=== PATIENT | male | born 1950 | race Caucasian/White ===

== ENCOUNTER 2024-09-08 18:20 | Inpatient (IN) | payer MEDICARE, SELFPAY ==
[2024-09-08 18:40] VITALS: BP 106/68; PULSE 80; RESP 18; TEMP 36.4; O2SAT 95; BMI 38.9
[2024-09-08 18:58] VITALS: BMI 37.3
--- NOTE | 2024-09-08 19:55 | HP.PCM_ITS ---
HPI - General General Date of Admission: 09/08/24 Date of Service: 09/11/24 Chief Complaint: Here for rehabilitation. HPI Narrative ALYX JENNINGS, is a 73 Male who presents with followin09/02/2024 Admit to [facility] with chest pain, shortness of breath. Influenza A. Fatigue, chest pain, shortness of breath, lightheadedness, fever 101.5. Recent left 2nd toe amputation for osteomyelitis. Cefepime IV, 1 liter IV fluid given. 09/02/2024 Tamiflu, IV fluids, cough suppressant for influenza A. Oral antibiotics for 3 weeks for left 2nd toe osteomyelitis. PT/OT/CM/SW. 09/05/2024 Podiatry consulted for left 2nd toe osteomyelitis status post amputation, suture removal later. 09/05/2024 Chest pain not cardiac related. 09/06/2024 Aortic stenosis severe. 09/07/2024 No acute events overnight, oxygen 2 liters to 3 liters. Troponin negative x 2, consider stress test if chest pain. Lasix 20mg IV x 1, Chest X-ray showed vascular congestion. Tamiflu for influenza A. PT/OT for SNF. D/C IV fluids, tolerating PO intake. 09/08/2024 Admit to TCU with debility, here for rehabilitation, strengthening, prior to discharge home with . [facility] Medical History Transient ischemic attack Obstructive sleep apnea Restless leg syndrome Hyperlipidemia Type 2 diabetes mellitus with hyperglycemia Anxiety Depression Low back pain Severe aortic stenosis Osteomyelitis of second toe of left foot Influenza A Acute respiratory failure with hypoxia Debility Home Medications ?Medication ?Instructions ?Recorded ?Last Taken ?Type acetaminophen 325 mg tablet 650 mg PO Q6H pain/fever 0 09/08/24 Unknown History aspirin 81 mg tablet,delayed 81 mg PO DAILY heart heal th 09/08/24 Unknown History release (Adult Low Dose Aspirin) cholecalciferol (vitamin D3) 125 125 mcg PO DAILY bone s 09/08/24 Unknown History mcg (5,000 unit) capsule clonazepam 1 mg tablet 1 mg PO QHS sleep 09/08/24 U nknown History empagliflozin 25 mg tablet 25 mg PO DAILY diabetes Unknown History (Jardiance) fenofibrate micronized 134 mg 134 mg PO DAILY choleste rol 09/08/24 Unknown History capsule finasteride 5 mg tablet 5 mg PO DAILY prostate 09/08 Unknown History glucose 4 gram chewable tablet 16 g PO DAILY PRN diabe mali mellitus 09/08/24 Unknown History (TRUEplus Glucose) hydrocodone-homatropine 5 mg-1.5 5 ml PO Q6H PRN cough 09/08/24 Unknown History mg/5 mL (5 mL) oral syrup (Hycodan) insulin glargine 100 unit/mL (3 49 unit subcut QPM christi betes 09/08/24 Unknown History mL) subcutaneous pen (Lantus Solostar U-100 Insulin) ipratropium 0.5 mg-albuterol 3 mg 3 ml inhalation Q8H PRN 09/08/24 Unknown History (2.5 mg base)/3 mL nebulization wheezing/sob soln isosorbide mononitrate 30 mg 30 mg PO DAILY Blood pres amaral 09/08/24 Unknown History tablet,extended release 24 hr oseltamivir 75 mg capsule 75 mg PO BID flu 09/08/24 Un known History polyethylene glycol 3350 17 17 g PO DAILY PRN constipa tion 09/08/24 Unknown History gram/dose oral powder (Miralax) pramipexole 1 mg tablet 1 mg PO BID parkinsons 09/08 Unknown History rosuvastatin 20 mg tablet 20 mg PO DAILY cholesterol 0 09/08/24 Unknown History semaglutide 3 mg tablet 3 mg PO DAILY wt loss Unknown History sertraline 100 mg tablet 150 mg PO DAILY mood 5 Unknown History Allergy/AdvReac Type Severity Reaction Status Date / Time PHAM Inhibitors AdvReac Severe Angioedema Verified 09/08/24 19:22 lisinopril AdvReac cough Verified 09/08/24 19:22 Family History Mother Diabetes Myocardial infarction Chronic mental illness Father CVA (cerebral vascular accident) Myocardial infarction Asthma Blindness Sister Breast cancer Brother Lung cancer Brother Diabetes Brother Thyroid disorder Surgical History History of tonsillectomy History of urologic surgery History of lithotripsy History of cataract surgery History of cardiac catheterization History of appendectomy History of amputation of left second toe Social History household members: spouse sexually active: Yes Smoking Status: Never smoker alcohol intake: never substance use type: does not use ROS Constitutional Constitutional: Reports weakness; Denies chills, fever(s) or weight gain ENT HEENT: Denies headache(s), nasal congestion or nasal discharge Cardiovascular Cardiovascular: Denies chest pain or palpitations Respiratory/Chest Respiratory/Chest: Denies cough, excessive phlegm production or shortness of breath with exertion Gastrointestinal Gastrointestinal: Denies abdominal pain, nausea or vomiting Genitourinary Genitourinary: Denies dysuria Musculoskeletal Musculoskeletal: Denies joint pain or joint swelling Integumentary Integumentary: Denies rash or wounds Neurologic Neurologic: Denies focal weakness, numbness or tingling Psychiatric Psychiatric: Denies anxiety, auditory hallucinations, depression, homicidal ideation or suicidal ideation Vital Signs Vital Signs Vital Signs: 09/08/24 18:40 09/08/24 18:40 Temperature 97.5 F L Temperature Source Temporal Pulse Rate 80 80 Pulse Rhythm Regular Pulse Strength Normal (2+) Respiratory Rate 18 18 Respiratory Effort Normal Respiratory Depth Normal Respiratory Pattern Normal Blood Pressure 106/68 Blood Pressure Mean 80 Blood Pressure Source Monitor Blood Pressure Position Semi-Fowlers Blood Pressure Location Left Arm Pulse Ox 95 95 Oxygen Delivery Method Room Air Room Air Weight Weight: 116.12 kg Body Mass Index (BMI) 38.9 Physical Exam Const alert General Appearance: cooperative HEENT normocephalic Eyes PERRL and EOMs intact bilaterally Neck supple, no JVD and no carotid bruits Resp normal respiratory effort, normal air movement and clear to auscultation bilaterally Cardio regular rate and regular rhythm GI normal to inspection, nondistended, normoactive bowel sounds, non-tender and non-distended Extremity normal capillary refill Extremity Narrative: Left foot dressed. General Extremity: Negative for edema Skin no rashes or lesions noted General Skin Exam: no breakdown Psych affect normal Appearance: appropriate Results Lab / Micro Data 09/09/24 04:00 09/09/24 04:00 Assessment & Plan Assessment/Plan (1) Debility: (2) Acute respiratory failure with hypoxia: (3) Influenza A: (4) History of amputation of left second toe: (5) Osteomyelitis of second toe of left foot: (6) Severe aortic stenosis: (7) Low back pain: (8) Depression: (9) Anxiety: (10) Type 2 diabetes mellitus with hyperglycemia: (11) Hyperlipidemia: (12) Restless leg syndrome: (13) Obstructive sleep apnea: (14) Transient ischemic attack: PLAN: Plan 73 year old male with below past medical history hospitalized for acute respiratory failure with hypoxia 2/2 influenza A, complicated by severe aortic stenosis, left 2nd toe amputation for osteomyelitis, admitted to TCU with debility, here for rehabilitation, strengthening, prior to discharge home with . * Debility - PT/OT. * Pain - Tylenol 650mg q6. * Bowel - senna/colace 1 tablet bid, Miralax 17gm daily prn. * Adult immunization - Administer pneumonia vaccine, covid vaccine, flu vaccine as appropriate. * DVT prophylaxis - Lovenox 40mg sc daily. * Influenza A - Tamiflu 75mg bid thru 09/11/2024. * Coronary artery disease - Isosorbide MN 30mg daily, Aspirin 81mg daily. * Hyperlipidemia - Atorvastatin 40mg daily. * Vitamin D deficiency - D3 125mcg daily. * Anxiety - Clonazepam 1mg qhs, stable chronic halfway use, GDR not recommended. * Diabetes Mellitus II - Jardiance 25mg daily, Glargine 49 units sc daily, Glucose oral gel 15gm q6 prn. * Hyperlipidemia - Fenofibrate 145mg daily. * BPH - Finasteride 5mg daily. * Cough - Robitussin DM 10mL q6 prn. * Restless leg syndrome - Mirapex 1mg bid. 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
[2024-09-08 21:22] LABS: Bedside Glucose 343 mg/dL (74-106)
[2024-09-08] MEDS: Oseltamivir Phosphate 75 MG Capsule PO (21:43)
[2024-09-08] MEDS: clonazePAM 1 MG Tablet PO (21:43)
[2024-09-08] MEDS: Insulin Glargine-YFGN 100 UNIT/ML Pen 49 UNIT SC (21:43)
[2024-09-08] MEDS: Pramipexole Di-HCl 1 MG Tablet PO (21:46)
[2024-09-08] MEDS: guaiFENesin Dm 10 ML UDC PO (21:53)
[2024-09-09 05:10] LABS: Absolute Lymphocyte Count 2.03 X10^3/uL (0.83-4.51); Absolute Neutrophil Count 6.4 X10^3/uL (2.0-7.7); Basophil# 0.07 X10^3/uL; Basophil% 0.7 % (0-1); Eosinophil# 0.04 X10^3/uL; Eosinophils% 0.4 % (0-5); Hematocrit 46.5 % (40-54); Hemoglobin 15.3 g/dL (13.0-16.5); Lymphocyte # 2.03 X10^3/ul (0.83-4.51); Lymphocyte % 21.3 % (19-41); Mean Corp Hgb Conc 32.9 g/dL (32-36); Mean Corpuscular Hgb 27.9 pg (27.0-32.0); Mean Corpuscular Volume 84.7 fL (80-94); Mean Platelet Vol. 9.8 fl (6.2-12.0); Monocyte# 0.73 X10^3/uL; Monocyte% 7.7 % (0-10); NRBC Flagged by Analyzer 0 % (0-5); Neutrophil # 6.41 X10^3/uL (2.7-7.7); Neutrophil % 67.5 % (47-70); Platelet Count 251 K/mm3 (150-450); RBC Distribution Width CV 13.5 % (11.6-14.6); RBC Distribution Width SD 42.4 fl (35.1-43.9); Red Blood Count 5.49 M/mm3 (4.6-6.2); White Blood Count 9.5 K/mm3 (4.4-11.0)
[2024-09-09 05:22] LABS: Anion Gap 8 (5-15); BUN 31 mg/dL (7-18); BUN/Creat Ratio 24.2 RATIO (10-20); Calcium,Total 9.8 mg/dL (8.5-10.1); Chloride 100 mmol/L (98-107); Creatinine, Serum 1.28 mg/dL (0.70-1.30); EST Glomerular Filtration Rate 58 mL/min (>60); Est Glom Filt Rate - Afr Amer 71 mL/min (>60); Estimated Creatinine Clearance 62.23 ml/min; Glucose 167 mg/dL (74-106); Potassium 3.5 mmol/L (3.5-5.1); Sodium Level 136 mmol/L (136-145)
[2024-09-09] MEDS: Acetaminophen 325 MG Tablet 650 MG PO ×3 (05:35→17:49)
[2024-09-09 06:21] LABS: Bedside Glucose 152 mg/dL (74-106)
[2024-09-09] MEDS: guaiFENesin Dm 10 ML UDC PO (07:00)
[2024-09-09] MEDS: Enoxaparin 40 MG/0.4 ML Syringe SC (07:07)
[2024-09-09] MEDS: Sertraline 100 MG Tablet 150 MG PO (08:31)
[2024-09-09] MEDS: Atorvastatin Calcium 40 MG Tablet PO (08:31)
[2024-09-09] MEDS: Finasteride 5 MG Tablet PO (08:31)
[2024-09-09] MEDS: Empagliflozin 25 MG Tablet PO (08:31)
[2024-09-09] MEDS: Cholecalciferol (Vit D3) 125 MCG CAPSULE (5,000 UNITS) PO (08:31)
[2024-09-09] MEDS: Aspirin E.C. 81 MG Tablet PO (08:31)
[2024-09-09] MEDS: Fenofibrate 145 MG Tablet PO (08:31)
[2024-09-09] MEDS: Isosorbide Mononitrate 30 MG Tablet PO (08:31)
[2024-09-09] MEDS: Pramipexole Di-HCl 1 MG Tablet PO ×2 (08:31→22:07)
[2024-09-09] MEDS: Oseltamivir Phosphate 75 MG Capsule PO ×2 (08:31→22:02)
[2024-09-09] MEDS: Senna/Docusate Sodium 1 Tablet PO ×2 (08:36→22:02)
[2024-09-09] MEDS: Tuberculin,Purif.prot.deriv. 50 TU/ML Vial 0.1 ML ID (10:02)
[2024-09-09 10:57] VITALS: BP 123/68; PULSE 68; RESP 18; TEMP 36.3; O2SAT 94
[2024-09-09 11:41] LABS: Bedside Glucose 159 mg/dL (74-106)
[2024-09-09 16:33] LABS: Bedside Glucose 242 mg/dL (74-106)
[2024-09-09 21:34] LABS: Bedside Glucose 343 mg/dL (74-106)
[2024-09-09 22:00] VITALS: PULSE 83; RESP 16; O2SAT 95
[2024-09-09] MEDS: clonazePAM 1 MG Tablet PO (22:01)
[2024-09-09] MEDS: Insulin Glargine-YFGN 100 UNIT/ML Pen 49 UNIT SC (22:06)
--- NOTE | 2024-09-09 22:34 | NURSING ---
Patient discovered self transferring to bathroom. Re-educated on use of call light for assistance. Will continue to monitor.
--- NOTE | 2024-09-10 02:41 | NURSING ---
Patient standing beside bed when this nurse entered room. Patient stated he had just used the urinal. His pajama bottoms were wet. They were removed and dry pajama bottoms put on. Has been refusing to put brief on. Continue to encourage patient to use call light for assistance. Will continue to monitor.
[2024-09-10] MEDS: Acetaminophen 325 MG Tablet 650 MG PO ×3 (05:44→17:38)
[2024-09-10] MEDS: Enoxaparin 40 MG/0.4 ML Syringe SC (05:44)
[2024-09-10 06:19] LABS: Bedside Glucose 147 mg/dL (74-106)
[2024-09-10] MEDS: Isosorbide Mononitrate 30 MG Tablet PO (08:32)
[2024-09-10] MEDS: Empagliflozin 25 MG Tablet PO (08:32)
[2024-09-10] MEDS: Pramipexole Di-HCl 1 MG Tablet PO ×2 (08:32→21:27)
[2024-09-10] MEDS: Atorvastatin Calcium 40 MG Tablet PO (08:32)
[2024-09-10] MEDS: Aspirin E.C. 81 MG Tablet PO (08:32)
[2024-09-10] MEDS: Cholecalciferol (Vit D3) 125 MCG CAPSULE (5,000 UNITS) PO (08:33)
[2024-09-10] MEDS: Oseltamivir Phosphate 75 MG Capsule PO ×2 (08:33→21:28)
[2024-09-10] MEDS: Finasteride 5 MG Tablet PO (08:33)
[2024-09-10] MEDS: Senna/Docusate Sodium 1 Tablet PO ×2 (08:33→21:28)
[2024-09-10] MEDS: Fenofibrate 145 MG Tablet PO (08:33)
[2024-09-10] MEDS: Sertraline 100 MG Tablet 150 MG PO (08:33)
[2024-09-10 10:58] VITALS: BP 128/80; PULSE 79; RESP 18; TEMP 36.4; O2SAT 98
[2024-09-10 11:57] LABS: Bedside Glucose 182 mg/dL (74-106)
[2024-09-10 16:29] LABS: Bedside Glucose 219 mg/dL (74-106)
[2024-09-10 21:25] VITALS: PULSE 84; RESP 16; O2SAT 93
[2024-09-10] MEDS: clonazePAM 1 MG Tablet PO (21:27)
[2024-09-10] MEDS: Insulin Glargine-YFGN 100 UNIT/ML Pen 49 UNIT SC (21:28)
[2024-09-10 22:18] LABS: Bedside Glucose 290 mg/dL (74-106)
--- NOTE | 2024-09-10 22:35 | NURSING ---
Asked patient about his follow up appt with DPM regarding left foot. He stated that it was made, but he did not remember time/date. He wasn't sure about keeping it if he was still here. I let him know that he could keep appt and that his could take him. He verbalized understanding. Will need to follow up with about appt.
[2024-09-11] MEDS: Acetaminophen 325 MG Tablet 650 MG PO ×3 (05:46→18:18)
[2024-09-11] MEDS: Enoxaparin 40 MG/0.4 ML Syringe SC (05:46)
[2024-09-11 06:32] LABS: Bedside Glucose 204 mg/dL (74-106)
[2024-09-11] MEDS: Fenofibrate 145 MG Tablet PO (08:16)
[2024-09-11] MEDS: Isosorbide Mononitrate 30 MG Tablet PO (08:16)
[2024-09-11] MEDS: Finasteride 5 MG Tablet PO (08:16)
[2024-09-11] MEDS: Sertraline 100 MG Tablet 150 MG PO (08:16)
[2024-09-11] MEDS: Empagliflozin 25 MG Tablet PO (08:16)
[2024-09-11] MEDS: Aspirin E.C. 81 MG Tablet PO (08:16)
[2024-09-11] MEDS: Cholecalciferol (Vit D3) 125 MCG CAPSULE (5,000 UNITS) PO (08:16)
[2024-09-11] MEDS: Oseltamivir Phosphate 75 MG Capsule PO ×2 (08:16→20:56)
[2024-09-11] MEDS: Senna/Docusate Sodium 1 Tablet PO ×2 (08:16→20:56)
[2024-09-11] MEDS: Pramipexole Di-HCl 1 MG Tablet PO ×2 (08:16→20:56)
[2024-09-11] MEDS: Atorvastatin Calcium 40 MG Tablet PO (08:17)
[2024-09-11 10:14] VITALS: BP 158/89; PULSE 81; RESP 18; TEMP 36.7; O2SAT 97
--- NOTE | 2024-09-11 10:22 | NURSING ---
Accountancy Professor Note; Activity Asset: Sara Stark is independent in his choice of daily activities. His will be her daily and will bring him items from home he may want. He will read the paper, watch tv, has his smartphone and word search puzzles. He welcomes visits from the payroll and benefits coordinator and therapy dog when available as well. Staff will remind him of weekly activities and respect his right to say no.
--- NOTE | 2024-09-11 11:20 | NURSING ---
Offered covid vaccine, VIS provided. Resident declines at a time.
[2024-09-11 11:48] LABS: Bedside Glucose 225 mg/dL (74-106)
--- NOTE | 2024-09-11 15:50 | CHAPLAIN ---
Type of Pastoral Visit _x__ Initial Visit ___ Follow-up Visit ___ On-call Visit ___ General Patient Visit ___ Spiritual Assessment ___ Family Conference ___ Bereavement ___ Rapid Response ___ Code Blue ___ Other (describe below) Pastoral Care Referral From _x__ Patient ___ Family ___ Nurse ___ Physician ___ Material Checker ___ Clarifier ___ Other (describe below) Sacrament/Intervention _x__ Active listening ___ Anointing ___ Mormon ___ Bereavement ___ Communion ___ Irene exploration ___ ___ Life review ___ Prayer ___ Reconciliation ___ Sacrament of Sick ___ Supportive presence ___ Wedding ___ Other (describe below) Pastoral Comments patient gives details on his injury, surgery, and then illness; pt reports feeling some better and begins to share more when the PT came for his session; visit ended with promise of picking it up later this week
[2024-09-11 16:55] LABS: Bedside Glucose 227 mg/dL (74-106)
[2024-09-11] MEDS: Insulin Glargine-YFGN 100 UNIT/ML Pen 49 UNIT SC (20:53)
[2024-09-11] MEDS: clonazePAM 1 MG Tablet PO (20:56)
[2024-09-11 21:31] LABS: Bedside Glucose 275 mg/dL (74-106)
[2024-09-12] MEDS: Enoxaparin 40 MG/0.4 ML Syringe SC (05:21)
[2024-09-12] MEDS: Acetaminophen 325 MG Tablet 650 MG PO ×3 (05:22→17:23)
[2024-09-12 05:49] VITALS: PULSE 80; O2SAT 95
[2024-09-12 06:44] LABS: Bedside Glucose 180 mg/dL (74-106)
[2024-09-12 07:51] VITALS: BP 121/78; PULSE 69; RESP 16; TEMP 36.4; O2SAT 96
[2024-09-12] MEDS: Isosorbide Mononitrate 30 MG Tablet PO (07:55)
[2024-09-12] MEDS: Aspirin E.C. 81 MG Tablet PO (07:55)
[2024-09-12] MEDS: Empagliflozin 25 MG Tablet PO (07:55)
[2024-09-12] MEDS: Pramipexole Di-HCl 1 MG Tablet PO ×2 (07:55→22:46)
[2024-09-12] MEDS: Atorvastatin Calcium 40 MG Tablet PO (07:55)
[2024-09-12] MEDS: Fenofibrate 145 MG Tablet PO (07:56)
[2024-09-12] MEDS: Cholecalciferol (Vit D3) 125 MCG CAPSULE (5,000 UNITS) PO (07:56)
[2024-09-12] MEDS: Finasteride 5 MG Tablet PO (07:56)
[2024-09-12] MEDS: Senna/Docusate Sodium 1 Tablet PO ×2 (07:56→22:46)
[2024-09-12] MEDS: Sertraline 100 MG Tablet 150 MG PO (07:56)
[2024-09-12 11:38] LABS: Bedside Glucose 178 mg/dL (74-106)
--- NOTE | 2024-09-12 15:42 | PCM.PN.DRR ---
Documented by User: Luz Davalos 09/12/24 16:02 TCU RX Drug Regimen Review Subjective/Objective Subjective/Objective Subjective: TCU Admission. 73 YOM presented to outside ER with chest pain and shortness of breath. Hospitalized for acute respiratory failure with hypoxia 2/2 influenza A, complicated by severe aortic stenosis, left 2nd toe amputation for osteomyelitis. Admitted to TCU with debility for strengthening and rehabilitation. Objective: Allergies PHAM Inhibitors Adverse Reaction (Severe, Verified 09/08/24 19:22) Angioedema spasmodic cough lisinopril Adverse Reaction (Verified 09/08/24 19:22) cough Current Medications Generic Name Dose Route Start Last Admin Trade Name Freq PRN Reason Stop Dose Admin Acetaminophen 650 mg 09/09/24 00:00 09/12/24 12:00 Acetaminophen 325 Mg Tablet PO 650 mg Q6 RYAN Administration Albuterol/Ipratropium 3 ml 09/08/24 18:54 Ipratropium/Albuterol Sulfate 3 Ml Ampul.Neb INHALATION Q8H PRN wheezing/sob Aspirin 81 mg 09/09/24 08:00 09/12/24 07:55 Aspirin E.C. 81 Mg Tablet PO 81 mg BREAKFAST RYAN Administration Atorvastatin Calcium 40 mg 09/09/24 10:00 09/12/24 07:55 Atorvastatin Calcium 40 Mg Tablet PO 40 mg DAILY RYAN Administration Cholecalciferol 125 mcg 09/09/24 10:00 09/12/24 07:56 Cholecalciferol (Vit D3) 125 Mcg Capsule (5,000 Units) PO 125 mcg DAILY RYAN Administration Clonazepam 1 mg 09/08/24 22:00 09/11/24 20:56 Clonazepam 1 Mg Tablet PO 1 mg QHS RYAN Administration Empagliflozin 25 mg 09/09/24 10:00 09/12/24 07:55 Empagliflozin 25 Mg Tablet PO 25 mg DAILY RYAN Administration Enoxaparin Sodium 40 mg 09/09/24 06:00 09/12/24 05:21 Enoxaparin 40 Mg/0.4 Ml Syringe SC 40 mg DAILY@0600 RYAN Administration Fenofibrate 145 mg 09/09/24 10:00 09/12/24 07:56 Fenofibrate 145 Mg Tablet PO 145 mg DAILY RYAN Administration Finasteride 5 mg 09/09/24 10:00 09/12/24 07:56 Finasteride 5 Mg Tablet PO 5 mg DAILY RYAN Administration Glucose 15 gm 09/08/24 19:34 Glucose Oral Gel 15 Gm Tube PO Q6H PRN HYPOGLYCEMIA Guaifenesin 10 ml 09/08/24 19:33 09/09/24 07:00 Guaifenesin Dm 10 Ml Udc PO 10 ml Q6H PRN Administration cough Insulin Glargine 49 unit 09/08/24 21:00 09/11/24 20:53 Insulin Glargine-Yfgn 100 Unit/Ml Pen SC 49 unit QPM RYAN Administration Isosorbide Mononitrate 30 mg 09/09/24 10:00 09/12/24 07:55 Isosorbide Mononitrate 30 Mg Tablet PO 30 mg DAILY RYAN Administration Protocol Polyethylene Glycol 17 gm 09/08/24 19:29 Polyethylene Glycol 3350 17 Gm Packet PO DAILY PRN constipation Pramipexole Dihydrochloride 1 mg 09/08/24 22:00 09/12/24 07:55 Pramipexole Di-Hcl 1 Mg Tablet PO 1 mg BID RYAN Administration Senna/Docusate Sodium 1 tablet 09/08/24 22:00 09/12/24 07:56 Senna/Docusate Sodium 1 Tablet PO 1 tablet BID RYAN Administration Sertraline HCl 150 mg 09/09/24 10:00 09/12/24 07:56 Sertraline 100 Mg Tablet PO 150 mg DAILY RYAN Administration Tuberculin PPD 0.1 ml 09/16/24 10:00 Tuberculin,Purif.Prot.Deriv. 50 Tu/Ml Vial ID 09/16/24 10:01 X1 ONE Problem List Transient ischemic attack (Acute) Obstructive sleep apnea (Acute) Restless leg syndrome (Acute) Hyperlipidemia (Acute) Type 2 diabetes mellitus with hyperglycemia (Acute) Anxiety (Acute) Depression (Acute) Low back pain (Acute) Severe aortic stenosis (Acute) Osteomyelitis of second toe of left foot (Acute) History of amputation of left second toe (Acute) Influenza A (Acute) Acute respiratory failure with hypoxia (Acute) Debility (Acute) Vital Signs Temp Pulse Resp BP Pulse Ox O2 Del Method 97.6 F L 69 16 121/78 H 96 Room Air 09/12/24 07:51 09/12/24 07:51 09/12/24 07:51 09/12/24 07:51 09/12/24 07:51 09/12/24 07:51 Oxygen Delivery Method Room Air Weight: 111.4 kg Body Mass Index (BMI) 37.3 Sodium 136 mmol/L (136-145) 09/09/24 04:00 Potassium 3.5 mmol/L (3.5-5.1) 09/09/24 04:00 Chloride 100 mmol/L (98-107) 09/09/24 04:00 Carbon Dioxide 28.0 mmol/L (21.0-32.0) 09/09/24 04:00 Anion Gap 8 (5-15) 09/09/24 04:00 BUN 31 mg/dL (7-18) H 09/09/24 04:00 Creatinine 1.28 mg/dL (0.70-1.30) 09/09/24 04:00 Est GFR (MDRD) Af Amer 71 mL/min (>60) 09/09/24 04:00 Est GFR (MDRD) Non-Af 58 mL/min (>60) L 09/09/24 04:00 BUN/Creatinine Ratio 24.2 RATIO (10-20) H 09/09/24 04:00 Glucose 167 mg/dL (74-106) H 09/09/24 04:00 Assessment/Plan: 1. Pain: acetaminophen 650mg PO Q6. Please continue to monitor for increased pain. 2. Bowel: senna/docusate 1T PO BID and Miralax 17gm PO daily PRN constipation. Resident has not had any PRN doses. Please continue to monitor for constipation and PRN usage. 3. DVT prophylaxis: enoxaparin 40mg SC daily. Please continue to monitor for S/S of DVT/bleeding, hemoglobin (last 15.3g/dL), platelets (last 251,000) and renal function. 4. CAD: isosorbide mononitrate 30mg PO daily and aspirin 81mg PO daily. Please continue to monitor BP (last 121/78), chest pain, facial flushing, S/S of bleeding and hemoglobin. 5. Hyperlipidemia: atorvastatin 40mg PO daily and fenofibrate 145mg PO daily. Please consider ordering a lipid panel as there is no panel in the chart. Thanks. Please continue to monitor for muscle pain. 6. Diabetes Mellitus II: empagliflozin 25mg PO daily, insulin glargine 49units SC QPM and glucose oral gel 15gm PO Q6H PRN hypoglycemia. No PRN usage. Please consider ordering a hemoglobin A1c as there is no level in the chart. Thanks. Please continue to monitor glucose (last 178mg/dL), renal function and S/S of hypoglycemia. 7. BPH: finasteride 5mg PO daily. Please continue to monitor BP and S/S of BPH. 8. Restless leg syndrome: pramipexole 1mg PO BID. Please continue to monitor for S/S of restless legs and drowsiness. 9. Cough: guaifenesin/DM 10mL PO Q6H PRN cough. Resident has received 2 doses. Please continue to monitor for cough and PRN usage. 10. Vitamin D deficiency: cholecalciferol 125mcg PO daily. Please consider ordering a vitamin D level as there is no level in the chart. Thanks. 11. SOB/wheezing: Duoneb 3mL inhalation Q8H PRN SOB/wheezing. No PRN doses given. Please continue to monitor for PRN usage and SOB. Assessment/Plan for indications treated with psychotropic medications: 1. Depression: sertraline 150mg PO daily. Please see physician note regarding GDR. Please continue to monitor for S/S of suicidal ideation (black box warning), sodium (last 136mmol/L) and falls/fractures (BEERs). 2. Anxiety: clonazepam 1mg PO QHS. Please see physician note regarding GDR. Please continue to monitor for falls/fractures (BEERs), dementia/delirium (BEERs) and confusion. Medical chart and medication regimen reviewed. The following medication irregularities or issues were identified: 1. Atorvastatin 40mg PO daily and fenofibrate 145mg PO daily. Please consider ordering a lipid panel as there is no panel in the chart. Thanks. 2. Empagliflozin 25mg PO daily, insulin glargine 49units SC QPM. No PRN usage. Please consider ordering a hemoglobin A1c as there is no level in the chart. Thanks. 3. Cholecalciferol 125mcg PO daily. Please consider ordering a vitamin D level as there is no level in the chart. Thanks. Date Date of Note: 09/12/24 Documented by User: Dr. Huang Owen MD 09/12/24 17:12 TCU RX Drug Regimen Review Provider Comments Provider responsibility Provider Comments to Recommendations by Pharmacy Agree
[2024-09-12 16:25] LABS: Bedside Glucose 220 mg/dL (74-106)
[2024-09-12 16:49] VITALS: BMI 37.3
[2024-09-12 22:05] LABS: Bedside Glucose 190 mg/dL (74-106)
[2024-09-12] MEDS: clonazePAM 1 MG Tablet PO (22:45)
[2024-09-12] MEDS: Insulin Glargine-YFGN 100 UNIT/ML Pen 49 UNIT SC (22:45)
[2024-09-13] MEDS: Acetaminophen 325 MG Tablet 650 MG PO ×3 (06:09→17:24)
[2024-09-13] MEDS: Enoxaparin 40 MG/0.4 ML Syringe SC (06:09)
[2024-09-13 06:10] LABS: Bedside Glucose 180 mg/dL (74-106)
[2024-09-13 06:37] LABS: Cholesterol 103 mg/dL (200); High Density Lipoprotein 35 mg/dL; Triglycerides 248 mg/dL; Very Low Density Lipoprotein 50 mg/dL (5-40)
[2024-09-13 08:12] VITALS: BP 146/85; PULSE 83; RESP 16; TEMP 36.2; O2SAT 93
[2024-09-13] MEDS: Aspirin E.C. 81 MG Tablet PO (08:14)
[2024-09-13] MEDS: Finasteride 5 MG Tablet PO (08:15)
[2024-09-13] MEDS: Senna/Docusate Sodium 1 Tablet PO ×2 (08:15→21:33)
[2024-09-13] MEDS: Fenofibrate 145 MG Tablet PO (08:15)
[2024-09-13] MEDS: Isosorbide Mononitrate 30 MG Tablet PO (08:15)
[2024-09-13] MEDS: Empagliflozin 25 MG Tablet PO (08:15)
[2024-09-13] MEDS: Cholecalciferol (Vit D3) 125 MCG CAPSULE (5,000 UNITS) PO (08:15)
[2024-09-13] MEDS: Atorvastatin Calcium 40 MG Tablet PO (08:15)
[2024-09-13] MEDS: Sertraline 100 MG Tablet 150 MG PO (08:15)
[2024-09-13] MEDS: Pramipexole Di-HCl 1 MG Tablet PO ×2 (08:15→21:34)
[2024-09-13 08:38] LABS: Hemoglobin A1c 8.3 % (3.8-5.6)
--- NOTE | 2024-09-13 09:32 | NURSING ---
Discussed follow-up appts for podiatry and cardiology with resident and . They will re-schedule for after resident DC's from TCU.
--- NOTE | 2024-09-13 09:50 | CASEMGMT ---
Social Work IDT met with patient, and dtr for care plan meeting. Discussed patient's progress in PT/OT/SN. Educated to [facility] insurance with NRD 09/23 and continued stay is not guaranteed with each review. Provided family with written communication on insurance process and copay coverage during stay. SW requested family provide pt's advance directives to place on chart. and dtr both work full-time but report to rotating schedules so someone is always home with pt. The plan is for pt to consistently using walker. No other concerns noted. SW will continue to follow for DC planning. Francine Malik FIELD ENGINEER NURSERY HELPER
[2024-09-13 12:07] LABS: Bedside Glucose 245 mg/dL (74-106)
--- NOTE | 2024-09-13 15:57 | CASEMGMT ---
Social Work SW returned after POC meeting to complete initial assessment. Verified contacts. Confirmed pt's code status as DNR-CCA, no intubation. SW notified nursing to have purple bracelet placed. Pt's goal is to return home at [facility] with and dtr. See SW assessment for details. SW will continue to follow for DC planning, Francine Malik DEMOGRAPHER BUSHEL WORKER
[2024-09-13 16:35] LABS: Bedside Glucose 292 mg/dL (74-106)
[2024-09-13 20:00] VITALS: PULSE 77; O2SAT 95
[2024-09-13] MEDS: clonazePAM 1 MG Tablet PO (21:33)
[2024-09-13] MEDS: Insulin Glargine-YFGN 100 UNIT/ML Pen 49 UNIT SC (21:34)
[2024-09-13 21:44] LABS: Bedside Glucose 309 mg/dL (74-106)
[2024-09-14] MEDS: Enoxaparin 40 MG/0.4 ML Syringe SC (06:02)
[2024-09-14 06:15] LABS: Bedside Glucose 197 mg/dL (74-106)
[2024-09-14] MEDS: Empagliflozin 25 MG Tablet PO (08:13)
[2024-09-14] MEDS: Sertraline 100 MG Tablet 150 MG PO (08:13)
[2024-09-14] MEDS: Pramipexole Di-HCl 1 MG Tablet PO ×2 (08:13→20:49)
[2024-09-14] MEDS: Finasteride 5 MG Tablet PO (08:13)
[2024-09-14] MEDS: Fenofibrate 145 MG Tablet PO (08:13)
[2024-09-14] MEDS: Cholecalciferol (Vit D3) 125 MCG CAPSULE (5,000 UNITS) PO (08:13)
[2024-09-14] MEDS: Aspirin E.C. 81 MG Tablet PO (08:14)
[2024-09-14] MEDS: Isosorbide Mononitrate 30 MG Tablet PO (08:14)
[2024-09-14] MEDS: Atorvastatin Calcium 40 MG Tablet PO (08:14)
[2024-09-14] MEDS: Senna/Docusate Sodium 1 Tablet PO (08:14)
[2024-09-14 08:17] VITALS: BP 147/75; PULSE 84
--- NOTE | 2024-09-14 11:51 | MDS.RN ---
Pain assessment for MDS complete.
[2024-09-14 12:14] LABS: Bedside Glucose 247 mg/dL (74-106)
[2024-09-14 14:23] LABS: Vitamin D,25 Hydroxy 49.4 ng/mL
--- NOTE | 2024-09-14 14:58 | CHAPLAIN ---
Type of Pastoral Visit ___ Initial Visit _x__ Follow-up Visit ___ On-call Visit ___ General Patient Visit ___ Spiritual Assessment ___ Family Conference ___ Bereavement ___ Rapid Response ___ Code Blue ___ Other (describe below) Pastoral Care Referral From _x__ Patient ___ Family ___ Nurse ___ Physician ___ Batterboard Setter ___ Dice Maker ___ Other (describe below) Sacrament/Intervention _x__ Active listening ___ Anointing ___ Mormonism ___ Bereavement ___ Communion _x__ Irene exploration ___ _x__ Life review _x__ Prayer ___ Reconciliation ___ Sacrament of Sick _x__ Supportive presence ___ Wedding ___ Other (describe below) Pastoral Comments patient was visited briefly a few days ago but the visit was short due to therapy session; sat with patient today and he was very welcoming and talkative; pt has great connections with friends for spiritual support and has a deep irene in God; pt is expressive of his irene and life experiences; pt acknowledges that he has diagnosis of dementia - lewy body; inquired as to how the patient is handling this situation and how he is facing the future; pt is open to discuss and believes that his irene will guide him and that his realistic approach to living will be a benefit; pt welcomes presence and prayer; pt hopes to go home by next Wednesday to celebrate his birthday
[2024-09-14 15:24] VITALS: BP 118/70; PULSE 76; RESP 16; TEMP 36; O2SAT 92
--- NOTE | 2024-09-14 15:52 | CASEMGMT ---
Social Work SW completed BIMS () and PHQ-2 () for MDS assessment. Pt is requesting to DC home, specifically by [birth year]. SW to review with IDT and and follow up with pt. Pt appreciative. Francine Malik LIBRARY ASSOCIATE PSYCHIATRIC CNS
[2024-09-14 17:00] LABS: Bedside Glucose 269 mg/dL (74-106)
[2024-09-14] MEDS: clonazePAM 1 MG Tablet PO (20:49)
[2024-09-14] MEDS: Insulin Glargine-YFGN 100 UNIT/ML Pen 49 UNIT SC (20:55)
[2024-09-14 21:15] LABS: Bedside Glucose 302 mg/dL (74-106)
[2024-09-15 05:54] LABS: Absolute Lymphocyte Count 2.54 X10^3/uL (0.83-4.51); Absolute Neutrophil Count 4.7 X10^3/uL (2.0-7.7); Basophil# 0.12 X10^3/uL; Basophil% 1.4 % (0-1); Eosinophil# 0.32 X10^3/uL; Eosinophils% 3.7 % (0-5); Hematocrit 49.1 % (40-54); Hemoglobin 15.9 g/dL (13.0-16.5); Lymphocyte # 2.54 X10^3/ul (0.83-4.51); Lymphocyte % 29.2 % (19-41); Mean Corp Hgb Conc 32.4 g/dL (32-36); Mean Corpuscular Hgb 28.2 pg (27.0-32.0); Mean Corpuscular Volume 87.2 fL (80-94); Mean Platelet Vol. 9.1 fl (6.2-12.0); Monocyte# 0.85 X10^3/uL; Monocyte% 9.8 % (0-10); NRBC Flagged by Analyzer 0 % (0-5); Neutrophil # 4.74 X10^3/uL (2.7-7.7); Neutrophil % 54.3 % (47-70); Platelet Count 267 K/mm3 (150-450); RBC Distribution Width CV 14.1 % (11.6-14.6); RBC Distribution Width SD 45.1 fl (35.1-43.9); Red Blood Count 5.63 M/mm3 (4.6-6.2); White Blood Count 8.7 K/mm3 (4.4-11.0)
[2024-09-15] MEDS: Enoxaparin 40 MG/0.4 ML Syringe SC (06:03)
[2024-09-15 06:57] LABS: Bedside Glucose 210 mg/dL (74-106)
[2024-09-15 07:51] VITALS: BP 130/82; PULSE 81; RESP 16; TEMP 36.5; O2SAT 94
[2024-09-15 08:06] LABS: Anion Gap 9 (5-15); BUN 17 mg/dL (7-18); Calcium,Total 9.3 mg/dL (8.5-10.1); Chloride 106 mmol/L (98-107); Creatinine, Serum 1.54 mg/dL (0.70-1.30); EST Glomerular Filtration Rate 47 mL/min (>60); Est Glom Filt Rate - Afr Amer 57 mL/min (>60); Estimated Creatinine Clearance 51.68 ml/min; Glucose 192 mg/dL (74-106); Potassium 3.9 mmol/L (3.5-5.1); Sodium Level 142 mmol/L (136-145)
[2024-09-15] MEDS: Aspirin E.C. 81 MG Tablet PO (08:09)
[2024-09-15] MEDS: Isosorbide Mononitrate 30 MG Tablet PO (08:10)
[2024-09-15] MEDS: Empagliflozin 25 MG Tablet PO (08:10)
[2024-09-15] MEDS: Atorvastatin Calcium 40 MG Tablet PO (08:11)
[2024-09-15] MEDS: Pramipexole Di-HCl 1 MG Tablet PO ×2 (08:12→21:52)
[2024-09-15] MEDS: Finasteride 5 MG Tablet PO (08:12)
[2024-09-15] MEDS: Senna/Docusate Sodium 1 Tablet PO (08:13)
[2024-09-15] MEDS: Fenofibrate 145 MG Tablet PO (08:14)
[2024-09-15] MEDS: Cholecalciferol (Vit D3) 125 MCG CAPSULE (5,000 UNITS) PO (08:14)
[2024-09-15] MEDS: Sertraline 100 MG Tablet 150 MG PO (08:15)
[2024-09-15] MEDS: Insulin Lispro 100 UNIT/ML INSULN.PEN SC ×3 (08:25→17:53)
--- NOTE | 2024-09-15 08:30 | NURSING ---
Multicut Line Operator Note; MDS for 09/15/2024 Complete
[2024-09-15 10:00] VITALS: BP 132/82; PULSE 92; RESP 18; TEMP 36.7; O2SAT 95
--- NOTE | 2024-09-15 10:01 | CASEMGMT ---
Addendum entered by Francine Malik 09/18/24 11:13: selected HHC preferences via [employer] Link. SW referred to [facility], Counts include 234 beds at the [facility], [facility], [facility]. Counts include 234 beds at the [facility] is the only accepting agency. SW secured. SW updated pt and they will contact pt for SOC. DC paperwork sent. Original Note: Social Work SW phoned to discuss DC date. OPERATING ROOM SURGICAL TECHNOLOGIST/NATE voice no concerns with DC, recommending pt using a walker and supervision for tasks. expressed understanding, has no concerns and agreeable to DC. SW offered to set DC. prefers 09/20. SW offered HHC vs OP. prefers HHC. SW offered to provide list of agencies including quality and resource data via [employer]. accepts and prefers text link. SW sent via [employer] link. to review and notify this worker of preferences for PT/OT. No DME needs. to transport home. Plan: DC home with and dtr 09/20, HHC PT/OT Francine Malik FUEL MANAGEMENT HANDLER PRICING/SIGNAGE TEAM MEMBER
[2024-09-15 11:46] LABS: Bedside Glucose 215 mg/dL (74-106)
--- NOTE | 2024-09-15 14:01 | DS.PCM_ITS ---
Providers Date of Admission: 09/08/24 Reason For Visit: INFLUENZA A, RECENT LEFT FOOT SURGERY Diagnosis Discharge Diagnosis (1) Debility: Status: Acute Code(s): R53.81 - Other malaise (2) Acute respiratory failure with hypoxia: Status: Acute Code(s): J96.01 - Acute respiratory failure with hypoxia (3) Influenza A: Status: Acute Code(s): J10.1 - Influenza due to other identified influenza virus with other respiratory manifestations (4) History of amputation of left second toe: Status: Acute Code(s): Z89.422 - Acquired absence of other left toe(s) (5) Osteomyelitis of second toe of left foot: Status: Acute Code(s): M86.9 - Osteomyelitis, unspecified (6) Severe aortic stenosis: Status: Acute Code(s): I35.0 - Nonrheumatic aortic (valve) stenosis (7) Low back pain: Status: Acute Code(s): M54.50 - Low back pain, unspecified (8) Depression: Status: Acute Code(s): F32.A - Depression, unspecified (9) Anxiety: Status: Acute Code(s): F41.9 - Anxiety disorder, unspecified (10) Type 2 diabetes mellitus with hyperglycemia: Status: Acute Code(s): E11.65 - Type 2 diabetes mellitus with hyperglycemia (11) Hyperlipidemia: Status: Acute Code(s): E78.5 - Hyperlipidemia, unspecified (12) Restless leg syndrome: Status: Acute Code(s): G25.81 - Restless legs syndrome (13) Obstructive sleep apnea: Status: Acute Code(s): G47.33 - Obstructive sleep apnea (adult) (pediatric) (14) Transient ischemic attack: Status: Acute Code(s): G45.9 - Transient cerebral ischemic attack, unspecified Plan 73 year old male with below past medical history hospitalized for acute respiratory failure with hypoxia 2/2 influenza A, complicated by severe aortic stenosis, left 2nd toe amputation for osteomyelitis, admitted to TCU with debility, here for rehabilitation, strengthening, prior to discharge home with . * Debility - PT/OT. * Pain - Tylenol 650mg q6. * Bowel - senna/colace 1 tablet bid, Miralax 17gm daily prn. * Adult immunization - Administer pneumonia vaccine, covid vaccine, flu vaccine as appropriate. * DVT prophylaxis - Lovenox 40mg sc daily. * Influenza A - Tamiflu 75mg bid thru 09/11/2024. * Coronary artery disease - Isosorbide MN 30mg daily, Aspirin 81mg daily. * Hyperlipidemia - Atorvastatin 40mg daily. * Vitamin D deficiency - D3 125mcg daily. * Anxiety - Clonazepam 1mg qhs, stable chronic residential use, GDR not recommended. * Diabetes Mellitus II - Jardiance 25mg daily, Glargine 49 units sc daily, Glucose oral gel 15gm q6 prn. * Hyperlipidemia - Fenofibrate 145mg daily. * BPH - Finasteride 5mg daily. * Cough - Robitussin DM 10mL q6 prn. * Restless leg syndrome - Mirapex 1mg bid. 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 Medications at Discharge Home Medications aspirin 81 mg tablet,delayed release (Adult Low Dose Aspirin) 81 mg PO DAILY heart health 09/08/24 cholecalciferol (vitamin D3) 125 mcg (5,000 unit) capsule 125 mcg PO DAILY bones 09/08/24 clonazepam 1 mg tablet 1 mg PO QHS sleep 09/08/24 empagliflozin 25 mg tablet (Jardiance) 25 mg PO DAILY diabetes 09/08/24 fenofibrate micronized 134 mg capsule 134 mg PO DAILY cholesterol 09/08/24 finasteride 5 mg tablet 5 mg PO DAILY prostate 09/08/24 insulin glargine 100 unit/mL (3 mL) subcutaneous pen (Lantus Solostar U-100 Insulin) 49 unit subcut QPM diabetes 09/08/24 isosorbide mononitrate 30 mg tablet,extended release 24 hr 30 mg PO DAILY Blood pressu 09/08/24 pramipexole 1 mg tablet 1 mg PO BID parkinsons 09/08/24 rosuvastatin 20 mg tablet 20 mg PO DAILY cholesterol 09/08/24 semaglutide 3 mg tablet 3 mg PO DAILY wt loss 09/08/24 sertraline 100 mg tablet 150 mg PO DAILY mood 09/08/24 Hospital Course Operations None Procedures None Summary of Care Provided Minutes Spent on Discharge: 35 Hospital Course: 73 year old male with below past medical history hospitalized for acute respiratory failure with hypoxia 2/2 influenza A, complicated by severe aortic stenosis, left 2nd toe amputation for osteomyelitis, admitted to TCU with debility, here for rehabilitation, strengthening, prior to discharge home with . Discharge home with and daughter 09/20/2024, [facility] PT/OT. Physical Exam Const alert General Appearance: cooperative HEENT normocephalic Eyes PERRL and EOMs intact bilaterally Neck supple, no JVD and no carotid bruits Resp normal respiratory effort, normal air movement and clear to auscultation bilaterally Cardio regular rate and regular rhythm GI normal to inspection, nondistended, normoactive bowel sounds, non-tender and non-distended Extremity normal capillary refill General Extremity: Negative for edema Skin no rashes or lesions noted General Skin Exam: no breakdown Psych affect normal Appearance: appropriate Weight / BMI Weight Weight: 111.221 kg Body Mass Index (BMI) 37.3 ABG / Lab / Microbiology Data 09/15/24 05:22 09/15/24 05:22 Laboratory: Laboratory Results - last 24 hr 09/13/24 05:16: Vitamin D 25-Hydroxy 49.4 09/14/24 16:39: POC Glucose 269 H 09/14/24 20:54: POC Glucose 302 H 09/15/24 05:22: WBC 8.7, RBC 5.63, Hgb 15.9, Hct 49.1, MCV 87.2, MCH 28.2, MCHC 32.4, RDW Std Deviation 45.1 H, RDW Coeff of Jessica 14.1, Plt Count 267, MPV 9.1, I mmature Gran % (Auto) 1.600 H, Neut % (Auto) 54.3, Lymph % (Auto) 29.2, Bradford % (Auto) 9.8, Eos % (Auto) 3.7, Baso % (Auto) 1.4 H, Absolute Neuts (auto) 4.7, Absolute Lymphs (auto) 2.54, Nucleated RBC % 0, Sodium 142, Potassium 3.9, Chloride 106, Carbon Dioxide 27.0, Anion Gap 9, BUN 17, Creatinine 1.54 H, Estim Creat Clear Calc 51.68, Est GFR (MDRD) Af Amer 57 L, Est GFR (MDRD) Non-Af 47 L, BUN/Creatinine Ratio 11.0, Glucose 192 H, Calcium 9.3 09/15/24 06:07: POC Glucose 210 H 09/15/24 11:25: POC Glucose 215 H Microbiology: Microbiology 09/13/24 Unknown Nasal Secretion SARS-CoV-2 Antigen (Rapid) - Final D/C Instructions Discharge Diet: No restrictions Discharge Activity: Return to Normal Activity, May Shower and Use Walker Weight Bearing Status: Weight bearing as tolerated Call your doctor if you observe: Fever of 101 or Higher, Inability to urinate, Inability to have a bowel movement, Shortness of breath, Dizziness, Fainting spells, Swelling in the ankles, Chest pain and Uncontrolled pain DC O2, CPAP, BIPAP Needs Home O2 Discharge instructions: No Additional Instructions: Discharge home with and daughter 09/20/2024, [facility] PT/OT. Please Follow Up With: KELVIN Fairchild When: As scheduled. Meaningful Use Info Meaningful Use Meaningful Use Diagnoses (Choose all that apply): None applicable Ischemic Stroke Statin Dosing Therapy Reference: STATIN DOSE THERAPY REFERENCE: * Patients > 75 years receive moderate or high dose statin therapy. * Patients 75 years or YOUNGER should receive HIGH intensity statin dose unless contraindicated. You will be required to document reason for non-treatment if statin daily dose does not meet guidelines. HIGH DOSE STATIN THERAPY DAILY Atorvastatin > than or = to 40 mg Rosuvastatin > than or = to 20 mg Amlodipine + Atorvastatin > than or = to 2.5/40 mg Ezetimibe + Simvastatin 10/80 mg Simvastatin 80mg Discharge Plan Admission Admit Date/Time: 09/08/24 18:20 Primary Reason for Your Visit: Debility. Attending Provider: Huang Owen Chi Instructions Additional Instructions / Restrictions: Discharge home with and daughter 09/20/2024, [facility] PT/OT. Discharge Orders/Prescriptions Prescriptions: Continued aspirin [Adult Low Dose Aspirin] 81 mg tablet,delayed release (DR/EC) 81 mg PO DAILY cholecalciferol (vitamin D3) 125 mcg (5,000 unit) capsule 125 mcg PO DAILY clonazepam 1 mg tablet 1 mg PO QHS Rx Instructions: administer 30 minutes before bedtime Jardiance 25 mg tablet 25 mg PO DAILY fenofibrate micronized 134 mg capsule 134 mg PO DAILY finasteride 5 mg tablet 5 mg PO DAILY insulin glargine [Lantus Solostar U-100 Insulin] 100 unit/mL (3 mL) insulin pen 49 unit subcut QPM isosorbide mononitrate 30 mg tablet extended release 24 hr 30 mg PO DAILY pramipexole 1 mg tablet 1 mg PO BID rosuvastatin 20 mg tablet 20 mg PO DAILY sertraline 100 mg tablet 150 mg PO DAILY semaglutide 3 mg tablet 3 mg PO DAILY Discontinued acetaminophen 325 mg tablet 650 mg PO Q6H hydrocodone-homatropine [Hycodan] 5-1.5 mg/5 mL (5 mL) syrup 5 ml PO Q6H PRN (Reason: cough) Patient Comments: x7 days ipratropium-albuterol 0.5 mg-3 mg(2.5 mg base)/3 mL solution for nebulization 3 ml inhalation Q8H PRN (Reason: wheezing/sob) oseltamivir 75 mg capsule 75 mg PO BID polyethylene glycol 3350 [Miralax] 17 gram/dose powder 17 g PO DAILY PRN (Reason: constipation) glucose [TRUEplus Glucose] 4 gram tablet,chewable 16 g PO DAILY PRN (Reason: diabetes mellitus) Disposition Disposition (needs filled in before D/C Order can be placed): Home Health Service
[2024-09-15 17:54] LABS: Bedside Glucose 289 mg/dL (74-106)
[2024-09-15] MEDS: Insulin Glargine-YFGN 100 UNIT/ML Pen 49 UNIT SC (21:51)
[2024-09-15] MEDS: clonazePAM 1 MG Tablet PO (21:52)
[2024-09-15 22:08] LABS: Bedside Glucose 244 mg/dL (74-106)
[2024-09-15 22:38] VITALS: PULSE 83; RESP 16; O2SAT 93
[2024-09-16] MEDS: Enoxaparin 40 MG/0.4 ML Syringe SC (05:59)
[2024-09-16 06:26] LABS: Bedside Glucose 171 mg/dL (74-106)
[2024-09-16 09:02] VITALS: BP 116/58; PULSE 85; RESP 16; TEMP 36.4; O2SAT 95
[2024-09-16] MEDS: Insulin Lispro 100 UNIT/ML INSULN.PEN SC ×3 (09:06→17:37)
[2024-09-16] MEDS: Isosorbide Mononitrate 30 MG Tablet PO (09:06)
[2024-09-16] MEDS: Aspirin E.C. 81 MG Tablet PO (09:06)
[2024-09-16] MEDS: Pramipexole Di-HCl 1 MG Tablet PO ×2 (09:07→20:49)
[2024-09-16] MEDS: Empagliflozin 25 MG Tablet PO (09:07)
[2024-09-16] MEDS: Atorvastatin Calcium 40 MG Tablet PO (09:07)
[2024-09-16] MEDS: Fenofibrate 145 MG Tablet PO (09:08)
[2024-09-16] MEDS: Sertraline 100 MG Tablet 150 MG PO (09:08)
[2024-09-16] MEDS: Cholecalciferol (Vit D3) 125 MCG CAPSULE (5,000 UNITS) PO (09:08)
[2024-09-16] MEDS: Finasteride 5 MG Tablet PO (09:09)
[2024-09-16] MEDS: Tuberculin,Purif.prot.deriv. 50 TU/ML Vial 0.1 ML ID (09:13)
[2024-09-16 10:24] VITALS: BMI 37.4
[2024-09-16 11:15] VITALS: PULSE 88; RESP 17; O2SAT 94
[2024-09-16 11:50] LABS: Bedside Glucose 251 mg/dL (74-106)
[2024-09-16 16:48] LABS: Bedside Glucose 258 mg/dL (74-106)
[2024-09-16] MEDS: clonazePAM 1 MG Tablet PO (20:49)
[2024-09-16] MEDS: Insulin Glargine-YFGN 100 UNIT/ML Pen 55 UNIT SC (20:49)
[2024-09-16 21:11] LABS: Bedside Glucose 263 mg/dL (74-106)
[2024-09-17 04:20] VITALS: RESP 16
[2024-09-17] MEDS: Enoxaparin 40 MG/0.4 ML Syringe SC (05:32)
[2024-09-17 06:14] LABS: Bedside Glucose 162 mg/dL (74-106)
[2024-09-17 08:22] VITALS: BP 119/76; PULSE 85; RESP 16; TEMP 36.2; O2SAT 96
[2024-09-17] MEDS: Aspirin E.C. 81 MG Tablet PO (08:24)
[2024-09-17] MEDS: Insulin Lispro 100 UNIT/ML INSULN.PEN SC ×3 (08:24→17:46)
[2024-09-17] MEDS: Sertraline 100 MG Tablet 150 MG PO (08:25)
[2024-09-17] MEDS: Cholecalciferol (Vit D3) 125 MCG CAPSULE (5,000 UNITS) PO (08:25)
[2024-09-17] MEDS: Empagliflozin 25 MG Tablet PO (08:25)
[2024-09-17] MEDS: Isosorbide Mononitrate 30 MG Tablet PO (08:25)
[2024-09-17] MEDS: Fenofibrate 145 MG Tablet PO (08:25)
[2024-09-17] MEDS: Atorvastatin Calcium 40 MG Tablet PO (08:25)
[2024-09-17] MEDS: Pramipexole Di-HCl 1 MG Tablet PO (08:26)
[2024-09-17] MEDS: Finasteride 5 MG Tablet PO (08:26)
[2024-09-17] MEDS: Senna/Docusate Sodium 1 Tablet PO (08:27)
[2024-09-17 11:41] LABS: Bedside Glucose 177 mg/dL (74-106)
[2024-09-17 14:38] VITALS: PULSE 88; RESP 16; O2SAT 96
[2024-09-17 16:38] LABS: Bedside Glucose 260 mg/dL (74-106)
[2024-09-17 21:53] LABS: Bedside Glucose 239 mg/dL (74-106)
[2024-09-17 22:10] VITALS: BP 134/75; PULSE 82; RESP 16; TEMP 36.6; O2SAT 95
[2024-09-17] MEDS: Insulin Glargine-YFGN 100 UNIT/ML Pen 55 UNIT SC (22:23)
--- NOTE | 2024-09-17 22:45 | NURSING ---
Patient observed with eyes closed when entering room with headphones on repeating No thank you, no thank you, verbal and tactile stimuli provided, patient opens eyes, states who are you? where am i? Alert to self at this time.Refuses HS medications. Second RN present. Hand grasps equal/firm. Vital signs obtained and stable. Afebrile. Blood glucose 239. Cognition change at this time, recently A&Ox3. Patient reports room spinning, asks this nurse to contact before patient will accept insulin as ordered. 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 (Kay) reports that patient has Lewy body dementia and has history of confusion at home and needing sternal rubs to wake up sometimes, hallucinates sometimes, and sometimes wakes up fighting due to hallucinations, no hallucinations observed at this time. Patient reports patient sees neurologist for lewy body dementia and there isn't anything more they can do to help him with it report that patient has history of being slow to respond if awakened and reports feeling dizzy often at home during episodes of confusion and cognition fluctuates at home. Spouse reports patient just sleeps it off and is better in a few hours but seems to be taking longer tonight. reports neurologist has tested him for seizures but it's not seizures. Spouse states that patient was recently been diagnosed with severe aortic stenosis and had a TIA about [address] Brayden payne.
--- NOTE | 2024-09-17 23:10 | NURSING ---
Second page to Dr. 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
[2024-09-18 00:26] LABS: Absolute Lymphocyte Count 2.43 X10^3/uL (0.83-4.51); Absolute Neutrophil Count 5.6 X10^3/uL (2.0-7.7); Basophil# 0.12 X10^3/uL; Basophil% 1.3 % (0-1); Eosinophil# 0.24 X10^3/uL; Eosinophils% 2.6 % (0-5); Hematocrit 45.4 % (40-54); Hemoglobin 14.4 g/dL (13.0-16.5); Lymphocyte # 2.43 X10^3/ul (0.83-4.51); Mean Corp Hgb Conc 31.7 g/dL (32-36); Mean Corpuscular Hgb 27.8 pg (27.0-32.0); Mean Corpuscular Volume 87.6 fL (80-94); Mean Platelet Vol. 9.6 fl (6.2-12.0); Monocyte# 0.84 X10^3/uL; NRBC Flagged by Analyzer 0 % (0-5); Neutrophil # 5.62 X10^3/uL (2.7-7.7); Neutrophil % 60.1 % (47-70); POSITIVE COUNT YES; Platelet Count 218 K/mm3 (150-450); RBC Distribution Width CV 14.4 % (11.6-14.6); RBC Distribution Width SD 45.8 fl (35.1-43.9); Red Blood Count 5.18 M/mm3 (4.6-6.2); White Blood Count 9.3 K/mm3 (4.4-11.0)
[2024-09-18 00:28] LABS: Anion Gap 8 (5-15); BUN 14 mg/dL (7-18); BUN/Creat Ratio 9.8 RATIO (10-20); Calcium,Total 9.1 mg/dL (8.5-10.1); Chloride 110 mmol/L (98-107); Creatinine, Serum 1.43 mg/dL (0.70-1.30); EST Glomerular Filtration Rate 51 mL/min (>60); Est Glom Filt Rate - Afr Amer 62 mL/min (>60); Estimated Creatinine Clearance 55.79 ml/min; Glucose 190 mg/dL (74-106); Potassium 3.8 mmol/L (3.5-5.1); Sodium Level 143 mmol/L (136-145)
--- NOTE | 2024-09-18 00:30 | NURSING ---
Patient A&Ox3 at this time, refuses straight cath for UA C&S collection, I'm not doing that. Agrees to provide clean catch. Patient denies need to void at this time, will try later call light in reach
--- NOTE | 2024-09-18 03:24 | NURSING ---
Return call from Dr. Owen, notified of patient new onset confusion since admit to TCU, spouse reports of lewy body dementia and hx of TIA and severe aortic stenosis, cognition changes at home and difficulty arousing at times, and refusal of HS medications. New orders received at this time: 1.CBC with diff 2.BMP 3.UA C&S 4.Covid test 5.Resp panel All orders repeated back to Dr. Owen.
[2024-09-18 03:30] LABS: Mucous, Urine 0 SEEN /hpf (<or=2+); Squamous Epithelial Cells - UA 0 SEEN /hpf (0-5); White Blood Cells 0 SEEN /hpf (0-5)
[2024-09-18 03:45] LABS: Color, Urine Yellow (Yellow); Glucose, Dipstick 1000 mg/dl (Normal); Ketone-Dipstick Negative (Negative); Leukocyte Esterase-Dipstick Negative /ul (Negative); Nitrite-Dipstick Negative (Negative); Occult Blood-Urine Negative /ul (Negative); Protein-Dipstick Negative (Negative); Urine Bilirubin Dipstick Negative (Negative); Urine Clarity Clear (Clear); Urine Urobilinogen Normal (Normal)
[2024-09-18 03:53] LABS: Bacteria RARE /hpf (None Seen); Red Blood Cells-Urine 0 SEEN /hpf (0-5)
[2024-09-18] MEDS: Enoxaparin 40 MG/0.4 ML Syringe SC (05:38)
[2024-09-18 05:42] LABS: Bedside Glucose 159 mg/dL (74-106)
[2024-09-18 07:48] VITALS: BP 144/86; PULSE 81; RESP 18; TEMP 36.5; O2SAT 98
[2024-09-18] MEDS: Insulin Lispro 100 UNIT/ML INSULN.PEN SC ×3 (08:22→17:36)
[2024-09-18] MEDS: Aspirin E.C. 81 MG Tablet PO (08:25)
[2024-09-18] MEDS: Isosorbide Mononitrate 30 MG Tablet PO (08:26)
[2024-09-18] MEDS: Empagliflozin 25 MG Tablet PO (08:27)
[2024-09-18] MEDS: Atorvastatin Calcium 40 MG Tablet PO (08:27)
[2024-09-18] MEDS: Senna/Docusate Sodium 1 Tablet PO ×2 (08:28→22:01)
[2024-09-18] MEDS: Finasteride 5 MG Tablet PO (08:28)
[2024-09-18] MEDS: Pramipexole Di-HCl 1 MG Tablet PO ×2 (08:28→22:01)
[2024-09-18] MEDS: Fenofibrate 145 MG Tablet PO (08:29)
[2024-09-18] MEDS: Cholecalciferol (Vit D3) 125 MCG CAPSULE (5,000 UNITS) PO (08:29)
[2024-09-18] MEDS: Sertraline 100 MG Tablet 150 MG PO (08:30)
[2024-09-18 11:30] LABS: Bedside Glucose 156 mg/dL (74-106)
[2024-09-18 16:24] LABS: Bedside Glucose 163 mg/dL (74-106)
[2024-09-18] MEDS: clonazePAM 1 MG Tablet PO (22:00)
[2024-09-18] MEDS: Insulin Glargine-YFGN 100 UNIT/ML Pen 55 UNIT SC (22:00)
[2024-09-18 22:15] LABS: Bedside Glucose 266 mg/dL (74-106)
[2024-09-19] MEDS: Enoxaparin 40 MG/0.4 ML Syringe SC (05:12)
[2024-09-19 06:47] LABS: Bedside Glucose 119 mg/dL (74-106)
[2024-09-19 08:49] VITALS: BP 114/66; PULSE 97; RESP 17; TEMP 36.6; O2SAT 97
[2024-09-19] MEDS: Insulin Lispro 100 UNIT/ML INSULN.PEN SC ×3 (08:49→16:56)
[2024-09-19] MEDS: Sertraline 100 MG Tablet 150 MG PO (08:49)
[2024-09-19] MEDS: Aspirin E.C. 81 MG Tablet PO (08:49)
[2024-09-19] MEDS: Fenofibrate 145 MG Tablet PO (08:50)
[2024-09-19] MEDS: Isosorbide Mononitrate 30 MG Tablet PO (08:50)
[2024-09-19] MEDS: Senna/Docusate Sodium 1 Tablet PO ×2 (08:50→21:52)
[2024-09-19] MEDS: Cholecalciferol (Vit D3) 125 MCG CAPSULE (5,000 UNITS) PO (08:50)
[2024-09-19] MEDS: Pramipexole Di-HCl 1 MG Tablet PO ×2 (08:50→21:52)
[2024-09-19] MEDS: Atorvastatin Calcium 40 MG Tablet PO (08:50)
[2024-09-19] MEDS: Empagliflozin 25 MG Tablet PO (08:50)
[2024-09-19] MEDS: Finasteride 5 MG Tablet PO (08:50)
[2024-09-19 11:22] LABS: Bedside Glucose 201 mg/dL (74-106)
[2024-09-19 16:29] LABS: Bedside Glucose 173 mg/dL (74-106)
[2024-09-19 16:42] VITALS: BMI 37.8
[2024-09-19 21:26] LABS: Bedside Glucose 247 mg/dL (74-106)
[2024-09-19] MEDS: clonazePAM 1 MG Tablet PO (21:51)
[2024-09-19] MEDS: Insulin Glargine-YFGN 100 UNIT/ML Pen 55 UNIT SC (21:52)
[2024-09-19 22:06] VITALS: PULSE 74; RESP 16; O2SAT 94
[2024-09-20] MEDS: Enoxaparin 40 MG/0.4 ML Syringe SC (05:40)
[2024-09-20 05:58] LABS: Bedside Glucose 140 mg/dL (74-106)
[2024-09-20 06:54] VITALS: RESP 16
[2024-09-20] MEDS: Aspirin E.C. 81 MG Tablet PO (08:05)
[2024-09-20] MEDS: Pramipexole Di-HCl 1 MG Tablet PO (08:05)
[2024-09-20] MEDS: Sertraline 100 MG Tablet 150 MG PO (08:05)
[2024-09-20] MEDS: Isosorbide Mononitrate 30 MG Tablet PO (08:05)
[2024-09-20] MEDS: Empagliflozin 25 MG Tablet PO (08:05)
[2024-09-20] MEDS: Fenofibrate 145 MG Tablet PO (08:05)
[2024-09-20] MEDS: Cholecalciferol (Vit D3) 125 MCG CAPSULE (5,000 UNITS) PO (08:05)
[2024-09-20] MEDS: Atorvastatin Calcium 40 MG Tablet PO (08:06)
[2024-09-20] MEDS: Senna/Docusate Sodium 1 Tablet PO (08:06)
[2024-09-20] MEDS: Finasteride 5 MG Tablet PO (08:06)
[2024-09-20] MEDS: Insulin Lispro 100 UNIT/ML INSULN.PEN SC (08:06)
[2024-09-20 08:11] VITALS: BP 147/85; PULSE 81
[2024-09-20 11:21] VITALS: BP 122/71; PULSE 92; RESP 17; TEMP 36.3; O2SAT 95
--- NOTE | 2024-09-21 13:36 | MDS.RN ---
Information for the MDS was obtained from review of the clinical record, interview of resident, staff, and direct observation of resident?s care.
== END 2024-09-20 11:17 | disposition home health service (06) | DRG 194 ==
PROVIDERS: Admitting Provider Family Medicine Geriatric Medicine; PCP Family Medicine; Visit Provider Family Medicine Geriatric Medicine
DX: J10.1 Influenza due to other identified influenza virus with other respiratory manifestations (principal); M86.8X7 Other osteomyelitis, ankle and foot; E11.69 Type 2 diabetes mellitus with other specified complication; G25.81 Restless legs syndrome; I35.0 Nonrheumatic aortic (valve) stenosis; F32.A Depression, unspecified; E11.65 Type 2 diabetes mellitus with hyperglycemia; E55.9 Vitamin D deficiency, unspecified; G47.33 Obstructive sleep apnea (adult) (pediatric); E78.5 Hyperlipidemia, unspecified; F41.9 Anxiety disorder, unspecified; Z89.422 Acquired absence of other left toe(s); N40.0 Benign prostatic hyperplasia without lower urinary tract symptoms; Z79.899 Other long term (current) drug therapy; Z79.82 Long term (current) use of aspirin
CPT/HCPCS: 36415; 80048; 80061; 81001; 82306; 82962; 83036; 85025; 87086; 87633; 87811; 97110; 97116; 97162; 97166; 97530; 97535; 97802